=== PATIENT | female | born 1985 | race Caucasian/White ===

== ENCOUNTER 2020-12-01 15:44 | Emergency (ER) | payer MEDICAID ==
[~2020-12-01] VITALS: Ht 165.1 cm; Wt 100.0 kg
[2020-12-01 16:26] VITALS: BP 185/92
[2020-12-01] MEDS ORDERED: FLUT16SP21 NS (16:52)
--- NOTE | 2020-12-01 16:54 | PHYS DOC ---
Past History Past Surgical History: Cholecystectomy, (GARY BANERJEE) General Adult EDM: Chief Complaint: COUGH HPI: HPI: Patient is a 35 year old female with history of asthma who presents with 2-day history of cough and congestion. Patient states it came on suddenly, but has not worsened since onset. She denies weakness, fever, chills, body aches, loss of taste or smell, chest pain, palpitations, shortness of breath. (GARY BANERJEE) Review of Systems: Review of Systems: ROS negative except as mentioned in HPI. (GARY BANERJEE) Allergies: Allergies: Allergies Coded Allergies Type Severity Reaction Last Updated Verified No Known Drug Allergies 12/01/20 No (GARY BANERJEE) Physical Exam: PE: Constitutional: Well developed, well nourished, no acute distress, non-toxic appearance. HENT: Normocephalic, atraumatic, bilateral external ears normal, oropharynx moist, no oral exudates, nasal turbinates swollen and pale bilaterally. Eyes: Conjunctiva normal, no discharge. Neck: Normal range of motion, no tenderness, supple, no stridor. Cardiovascular: Heart rate regular rhythm, no murmur. Lungs & Thorax: Bilateral breath sounds clear to auscultation. Neurologic: Alert and oriented x3, normal motor function, normal sensory function, no focal deficits noted. (GARY BANERJEE) Current Patient Data: Vital Signs: Vital Signs Date Time Temp Pulse Resp B/P (MAP) Pulse Ox O2 Delivery O2 Flow Rate FiO2 12/01/20 16:26 98.5 88 18 185/92 (123) 99 (GARY BANERJEE) Heart Score: C/O Chest Pain: No (GARY BANERJEE) Course & Med Decision Making: Course & Med Decision Making Pertinent Labs and Imaging studies reviewed. (See chart for details) Symptom duration is less than 1 week and she has not sought prior evaluation. Patient treatment plan will be supportive with humidifier at night and over-the- counter decongestant and cough suppressant. Patient understands and is agreeable to discharge plan. (GARY BANERJEE) Dragon Disclaimer: Dragon Disclaimer: This electronic medical record was generated, in whole or in part, using a voice recognition dictation system. (GARY BANERJEE) Departure Departure: Impression: Primary Impression: Rhinitis Qualified Codes: J31.0 - Chronic rhinitis Disposition: HOME / SELF CARE / HOMELESS Condition: STABLE Referrals: [facility] (PCP) Patient Instructions: Allergic Rhinitis, Sinusitis, [id number] Additional Instructions: EMERGENCY DEPARTMENT GENERAL DISCHARGE INSTRUCTIONS Thank you for coming to [facility] (ED) today and trusting us with you care. We trust that you had a positive experience in our Emergency Department. If you wish to speak to the department management, you may call the director at [phone]. YOUR FOLLOW UP INSTRUCTIONS ARE FOLLOWS: Do you have a private Doctor? If you do not have a private doctor, please ask for a resource list of physicians or clinics that may be able to assist you with follow up care. ADDITIONAL INSTRUCTIONS AND INFORMATION: 1. Your care today has been supervised by a physician who is specially trained in emergency care. Many problems require more than one evaluation for a complete diagnosis and treatment. We recommend that you schedule your follow up appointment as recommended to ensure complete treatment of you illness or injury. If you are unable to obtain follow up care and continue to have a problem, or if your condition worsens, we recommend that you return to the ED. 2. We are not able to safely determine your condition over the phone nor are we able to give sound medical advice over the phone. For these safety reasons, if you call for medical advice we will ask you to come to the ED for further evaluation. 3. If you have any questions regarding these discharge instructions please call the ED at [phone]. SAFETY INFORMATION: In the interest of safety, wellness, and injury prevention; we encourage you to wear your sealbelt, if you smoke; quite smoking, and we encourage family to use a protective helmet for bicycling and other sporting events that present an increased risk for head injury. IF YOUR SYMPTOMS WORSEN OR NEW SYMPTOMS DEVELOP, OR YOU HAVE CONCERNS ABOUT YOUR CONDITION; OR IF YOUR CONDITION WORSENS WHILE YOU ARE WAITING FOR YOUR FOLLOW UP APPOINTMENT; EITHER CONTACT YOUR PRIMARY CARE DOCTOR, THE PHYSICIAN WHOSE NAME AND NUMBER YOU WERE [place] JANE, OR RETURN TO THE ED IMMEDIATELY. Scripts Fluticasone Propionate (FLUTICASONE PROPIONATE NASAL SPRAY) 16 Gm [place].susp 2 SPRAY NS DAILY for rhinitis, #1 EACH Prov: GARY BANERJEE 12/01/20 Attending Signature Attending Signature I have reviewed the PA/RECRUITING AND SELECTION CONSULTANT's note and plan of care. I was available for consultation as needed during the patient's visit in the emergency department. I agree with the clinical impression, plan, and disposition. (URSULA [place]TA[place] DO) GARY BANERJEE Dec 01, 2020 16:54 URSULA MONTANA DO Dec 01, 2020 17:56
== END 2020-12-01 17:20 | disposition home or self-care (01) ==
LOC: ER 15:44
DX: J31.0 Chronic rhinitis (principal)
CPT/HCPCS: 99283